=== PATIENT | female | born 1995 | race African-American/Black ===

== ENCOUNTER 2022-09-23 04:58 | Emergency (ER) | payer BC | END 2022-09-23 08:15 | disposition home or self-care (01) | LOC: JD.ED 04:58 | DX: O20.0 Threatened abortion (principal); O23.41 Unspecified infection of urinary tract in pregnancy, first trimester; N39.0 Urinary tract infection, site not specified; Z3A.08 8 weeks gestation of pregnancy; Z79.899 Other long term (current) drug therapy | CPT/HCPCS: 36415; 81001; 84702; 85025; 86850; 86900; 86901; 87086; 99283; 99284 ==